=== PATIENT | female | born 1990 | race Caucasian/White ===

== ENCOUNTER 2017-06-27 12:21 | Emergency (ER) | payer OTHER ==
[~2017-06-27] VITALS: Ht 172.7 cm; Wt 132.9 kg
[2017-06-27 12:21] VITALS: BP 129/66
[2017-06-27] MEDS ORDERED: ACETAMINOPHEN 325 MG TABLET PO STA (12:58)
[2017-06-27] MEDS ORDERED: ACETAMINOPHEN 325 MG TABLET ONE (13:00)
== END 2017-06-27 14:29 | disposition home or self-care (01) ==
LOC: ER 12:24
DX: S06.0X0A Concussion without loss of consciousness, initial encounter (principal); W22.8XXA Striking against or struck by other objects, initial encounter; Y93.89 Activity, other specified; Y92.89 Other specified places as the place of occurrence of the external cause; Y99.8 Other external cause status
CPT/HCPCS: 99283; A4606; Z7610